=== PATIENT | male | born 1995 | race Caucasian/White ===

== ENCOUNTER 2021-12-13 13:00 | Outpatient (NON) | payer OTHER, SELFPAY | END 2021-12-13 13:01 | disposition home or self-care (01) | PROVIDERS: PCP Internal Medicine; Visit Provider Nurse Practitioner | DX: L72.0 Epidermal cyst (principal) | CPT/HCPCS: 88304 ==

== ENCOUNTER 2025-01-18 11:54 | Outpatient (CLI) | payer OTHER, SELFPAY ==
--- NOTE | ~2025-01-18 | XR_ITS ---
EXAMINATION: [id number], 01/18/2025 12:00 WOOD PLANER HISTORY: M79.672 - Pain in left foot COMPARISON: No comparisons available. Findings: No acute fracture or malalignment. No significant degenerative changes. Soft tissues unremarkable. Impression: No acute fracture or malalignment. Reviewed, dictated and finalized at location P. PLANER Impression: No acute fracture or malalignment.
--- OUTSIDE RECORDS SUMMARY | 2025-01-18 14:02 | XMS_ITS | Clinical Summary ---
Author Organization [facility] Address [address] [place] [address] Care Team Providers Care Load Out Person Name Role Phone Unavailable Primary Care Provider Unavailabl e Source Comments [facility],non-owned Affiliates and Associated Physician Practices is amultiple site organization consisting of ambulatory clinics and hospital sitesin [place], [place], [place] and [place]. This disclosure is being madepursuant to the Care Everywhere program and may not contain all information available regarding this patient. Last updated [facility] Allergies No known active allergies Medications * Be aware that medications may not be up to date on this document. Alwaysverify current medications with the patient. 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 Gender Identity Not on file Sexual Orientation Not on file Plan of Treatment Health Maintenance Due Date Last Done Comments HIV SCREENING 2009 HEPATITIS C SCREENING 03/01/2012 HEPATITIS B VACCINE (1 of 3 - 19+ 3-dose series) 2013 HPV VACCINE (1 - 3-dose SCDM series) 2021 DEPRESSION SCREENING 03/17/2024 COVID-19 VACCINE ( - 2023-2 5 season) 2024 INFLUENZA VACCINE (#1) 2024 DTAP/TDAP/TD VACCINES (2 - T d or Tdap) 04/02/2028 04/02/2018 ZOSTER VACCINE (1 of 2) 2044 HIB VACCINE Aged Out No longer eligi ble based on patient's age to complete this topic MENINGOCOCCAL (Group B) VACC INE SHARED DECISION-MAKING Aged Out No longer eligibl e based on patient's age to complete this topic MENINGOCOCCAL GROUPS A/C/Y/W VACCINE Aged Out No longer eligible b ased on patient's age to complete this topic PNEUMOCOCCAL VACCINE Aged Out No long er eligible based on patient's age to complete this topic Insurance
--- OUTSIDE RECORDS SUMMARY | 2025-01-18 14:02 | XMS_ITS ---
Author Organization [address] Address [address] [place] [id number] Care Team Providers Care Document Management Specialist Name Role Phone Darrin Aguilar MD Primary Care Provider [phone] Transplant Episode Kidney Potential Donor [facility] ([place], [place]) - [facility] Referred on 12/16/2023 Marked as Deferred on 12/16/2023 Reason: Pending Return of Packet Kidney CoordinatorAco Valarie Jackson MD Fax: N/A Email: N/A Care Team Name Role Phone Fax Email Aco Valarie Jackson MD Kidney Coordinator [phone] N/A N/A Events Pre-Donation Referred: 12/16/2023
--- OUTSIDE RECORDS SUMMARY | 2025-01-18 14:02 | XMS_ITS | Clinical Summary ---
Author Organization [address] Address [address] [place] [id number] Care Team Providers Care Signal Engineer Name Role Phone Darrin Aguilar MD Primary Care Provider [phone] Allergies No known active allergies Medications cetirizine (ZyrTEC) 10 mg chewable tablet Take 1 tablet (10 mg total) by mouth daily Active Active Problems Problem Noted Date Diagnosed Date Hemorrhage of anus and rectum 06/05/2023 Assessment & Plan (06/05/2023 6:09 PM CDT): Continue stool softener. Schedule colonoscopy for full evaluation. Corneal abrasion 11/03/2015 Overview (06/21/2016): Corneal abrasion, left, initial encounter Shoulder injury 10/16/2015 Overview (06/21/2016): Shoulder injury Celiac disease 08/15/2013 Overview (06/21/2016): Celiac disease Assessment & Plan (06/05/2023 6:10 PM CDT): Diagnosed at age 17 but he has not on any special diet. Will schedule EGD for biopsy of the duodenum. Surgical History Surgery Date Site/Laterality Comments OTHER SURGICAL HISTORY 2009 fracture toe OTHER SURGICAL HISTORY 2007 stress fracture proximal humerus OTHER SURGICAL HISTORY 2007 stress fx right proximal humerus COLONOSCOPY 07/17/2023 Medical History Medical History Date Comments Hx Other Medical 10/16/2015 Torn Labrum, le ft shoulder; Comments: ECS 11/01/2015 - See MRI report. Surgery with Dr. Singh planned. Celiac disease Family History Medical History Relation Name Comments Colon cancer Father's Brother Crohn's disease Father's Brother Crohn's disease; Diabetes Mother's Brother Diabetes me llitus; Other Other 1 1 Other Other 2 1 Relation Name Status Comments Father's Brother Mother's Brother Other 1 Other 2 Social History Tobacco Use Types Packs/Day Years Used Date Smoking Tobacco: Never Smokeless Tobacco: Never Tobacco Cessation:Counseling Given: Not Answered Alcohol Use Standard Drinks/Week Comments No 0 (1 standard drink = 0.6 oz pur e alcohol) Personal Safety Answer Date Recorded Have you ever been in or are you currently in a harmful physical or emotional relationship or is someone making you feel afraid or unsafe? 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 Gender Identity Not on file Sexual Orientation Not on file Last Filed Vital Signs Vital Sign Reading Time Taken Comments Blood Pressure 100/65 07/17/2023 2:40 PM CDT Pulse 51 07/17/2023 2:40 PM CDT Temperature 36.6 C (97.9 F) 07/17/2023 2:40 PM CDT Respiratory Rate 15 07/17/2023 2:40 PM CDT Oxygen Saturation 100% 07/17/2023 2:40 PM CDT Inhaled Oxygen Concentration - - Weight 79.4 kg (175 lb) 07/17/2023 12:34 PM CDT Height 177.8 cm (5' 10) 07/17/2023 12:34 PM CDT Body Mass Index 25.11 07/17/2023 12:34 PM CDT Plan of Treatment Health Maintenance Due Date Last Done Comments Depression Screening 1994 Hepatitis C Screening 1994 Varicella Vaccines (1 of 2 - 13+ 2-dose series) 2007 Hepatitis B Screening 2012 Regular Well Visit/Exam 18-64 2012 HPV Vaccines (1 - 3-dose SCD M series) 2021 Influenza Vaccine (#1) 2024 DTaP/Tdap/Td Vaccine (3 - Td or Tdap) 04/02/2028 04/02/2018, 09/03/1999 Pneumococcal vaccine <65 Aged Out No longer eligible based on patient's age to complete this topic Insurance [place] [facility] [place] [facility] [place] [address] Advance Directives For more information, please contact: [phone] * Full Code (Latest Code Status on File) Date Activated Date Inactivated Comments 07/17/2023 12:25 PM 07/17/2023 6:56 PM * Full Code Date Activated Date Inactivated Comments 07/17/2023 12:25 PM 07/17/2023 12:25 PM Care Teams Signal Engineer Relationship Specialty Start Date End Date Darrin Aguilar MD PCP - General 07/01/18
== END 2025-01-18 11:55 | disposition home or self-care (01) ==
PROVIDERS: PCP Internal Medicine; Visit Provider Internal Medicine
DX: M79.672 Pain in left foot (principal); M79.675 Pain in left toe(s)
CPT/HCPCS: 73630